=== PATIENT | female | born 1940 | race Caucasian/White ===

== ENCOUNTER → 2017-12-10 08:30 | Outpatient (CLI) | payer MEDICARE, OTHER, SELFPAY ==
[2017-12-10 09:52] LABS: Alanine Aminotransferase 21 IU/L (9-52); Albumin 4.1 g/dL (3.5-5.0); Albumin Globulin Ratio 1.3 (1.0-2.8); Alkaline Phosphatase 71 U/L (38-126); Aspartate Aminotransferase 24 IU/L (14-36); BUN Creatinine Ratio 21.4 (6-22); Bilirubin Total 0.6 mg/dL (0.2-1.3); Blood Urea Nitrogen 15 mg/dL (7-17); Carbon Dioxide 27 mmol/L (22-32); Chloride 104 mmol/L (98-107); Cholesterol 185 mg/dL (140-199); Estimated Glomerular Filt Rate > 60.0 mL/min (>60); Globulin 3.2 g/dL (1.7-4.1); Glucose 87 mg/dL (80-110); HDL Cholesterol 68 mg/dL (40-60); HEMOLYSIS 18 (0-50); LDL Cholesterol Calculated 85 mg/dL (<100); Potassium 4.4 mmol/L (3.4-5.1); Sodium 142 mmol/L (137-145); Total Protein 7.3 g/dL (6.3-8.2); Triglycerides 161 mg/dL (35-150)
[2017-12-10 10:07] LABS: Vitamin D 25 Hydroxy (D3) 38.3 ng/mL (30.0-100.0)
[2017-12-10 10:22] LABS: TSH w/ Reflex to FT4 1.18 uIU/mL (0.47-4.68)
== END ==
PROVIDERS: PCP Family Medicine; Visit Provider Family Medicine
DX: E78.5 Hyperlipidemia, unspecified (principal); M85.80 Other specified disorders of bone density and structure, unspecified site
CPT/HCPCS: 36415; 80053; 80061; 82306; 84443

== ENCOUNTER → 2018-01-07 09:18 | Outpatient (CLI) | payer MEDICARE, OTHER, SELFPAY ==
--- NOTE | 2018-01-07 09:20 | DI.ECHO.S_ITS ---
[facility] +---------+ : : [address] : [address] : : : : [id number] : : : : Phone: [phone]+ Echocardiogram Report + + :Name: JAKI CRABTREE Study Date: 01/07/2018 Height: 62 in : :[facility] Weight: 157 lb : : Gender: Female BSA: 1.7 m2 : :: 1940 Age: 77 yrs BP: 170/82 mmHg: :Reason For Study: Murmur : : Performed By: Willa Whitehead : :Referring: JAMAR MARCELINO : + + Interpretation Summary The left ventricle is normal in size, wall thickness, and systolic function without any focal wall motion abnormalities. The ejection fraction is estimated to be 60-65%. The right ventricle grossly appears normal in size with probable normal systolic function. The right ventricular systolic pressure is estimated at 34 mmHg assuming a right atrial pressure of 3 mm Hg. The left atrium is mildly dilated. Right atrial size is normal. There is moderate mitral regurgitation. There is no other significant valvular heart disease. The aortic root is normal size. Procedure: A two-dimensional transthoracic echocardiogram with color flow and Doppler was performed. The study quality was technically adequate. There is no prior echocardiogram noted for this patient. The patient was in normal sinus rhythm during the exam. Left Ventricle: The left ventricle is normal in size, wall thickness, and systolic function without any focal wall motion abnormalities. The ejection fraction is estimated to be 60-65%. Diastolic function could not be accurately assessed due to contradictory data. Right Ventricle: The right ventricle grossly appears normal in size with probable normal systolic function. Atria: The left atrium is mildly dilated. Right atrial size is normal. The interatrial septum is intact with no evidence for an atrial septal defect. Mitral Valve: The mitral valve leaflets appear borderline thickened, but open well. There is moderate mitral regurgitation. Aortic Valve: The aortic valve is trileaflet. The aortic valve opens well. No aortic regurgitation is present. Tricuspid Valve: The tricuspid valve is normal in structure and function. There is mild tricuspid regurgitation. The right ventricular systolic pressure is estimated at 34 mmHg assuming a right atrial pressure of 3 mm Hg. Pulmonic Valve: The pulmonic valve is not well seen, but is grossly normal. There is trace pulmonic regurgitation. There is no other significant valvular heart disease. Great Vessels: The aortic root is normal size. The dimensions of the ascending aorta are normal. The IVC is of normal diameter and collapses greater than 50% with a sniff. This suggests a low right atrial pressure of 3 mm Hg. Pericardium/ Pleura There is no pericardial effusion. There is no pleural effusion. MMode/2D Measurements & Calculations LVIDd: 4.5 cm Ao root diam: 2.8 cm LVIDs: 3.1 cm Aortic Jxn: 2.0 cm FS: 31.6 % asc Aorta Diam: 3.1 cm IVSd: 0.84 cm Ao Arch Diam (Prox Trans): 2.4 cm LVPWd: 0.90 cm LV alanis. diameter/BSA (cm/m^2): 2.6 LV sys. diameter/BSA (cm/m^2): 1.8 LA dimension: 3.8 cm RA long axis: 4.7 cm LA A2 area: 21.5 cm2 RA area: 14.4 cm2 LA A4 area: 20.8 cm2 RA vol: 37.7 ml LA length (vol): 5.4 cm RA : 21.8 ml/m2 LA vol: 69.5 ml IVC diam: 1.7 cm LA vol index: 40.3 ml/m2 RVDd major: 4.9 cm RVD1 (basal): 3.4 cm RVD2 (mid): 3.0 cm Doppler Measurements & Calculations Ao V2 max: 167.8 cm/sec MV E max charles: 97.9 cm/sec Ao V2 mean: 113.4 cm/sec MV A max charles: 126.1 cm/sec Ao max P.3 mmHg MV E/A: 0.78 Ao mean P.8 mmHg Med Peak E' Charles: 8.1 cm/sec Ao V2 VTI: 38.4 cm E/E' med: 12.1 Lat Peak E' Charles: 5.5 cm/sec E/E' lat: 17.9 E/e' average: 15.0 MV dec time: 0.20 sec MV P1/2t: 60.7 msec TR max charles: 276.6 cm/sec MV P1/2t max charles: 98.2 cm/sec TR max P.6 mmHg MVA(P1/2t): 3.6 cm2 PA V2 max: 80.3 cm/sec PA V2 mean: 49.8 cm/sec PA mean P.2 mmHg PA Accel Time: 0.16 sec MR flow rate: 77.4 cm3/sec MR HEAD radius: 0.57 cm Reading Physician:CECILIA
== END ==
PROVIDERS: PCP Family Medicine; Visit Provider Family Medicine
DX: R01.1 Cardiac murmur, unspecified (principal)
CPT/HCPCS: 93306

== ENCOUNTER 2018-01-25 07:35 | Day surgery (SDC) | payer MEDICARE, OTHER, SELFPAY ==
--- NOTE | 2018-01-25 | PATH_ITS ---
[facility] Accession Number: [id number] . 01 Material submitted: . CECUM POLYP . 02 Diagnosis: Cecum, Polyp, Biopsy: Tubular adenoma. MRV/01/27/2018 . 02 Electronically signed: . Mary Cuba MD, Pathologist NPI- [id number] . 01 Gross description: . CECUM POLYP: Received in formalin are multiple fragment(s) of jacob, soft tissue measuring 1.8 x 0.4 x 0.2 cm in aggregate submitted entirely in 1 cassette(s) /TRC /TRC . 02 Pathologist provided ICD-10: D12.0 . 02 CPT . 274755 Performed at: 01 [facility] [address], [place], [place] [id number] MD Kuldip Peterson MD Phone: [phone] Performed at: 02 [facility] [address] [place], [place] [id number] MD Jaxon Lai MD Phone: [phone]
[2018-01-25 08:04] VITALS: BP 144/79; PULSE 88; RESP 15; TEMP 36.3; O2SAT 98; BMI 27.4
[2018-01-25] MEDS: SODIUM CHLORIDE 0.9% 1,000 ML 100 ML IV (08:11)
--- NOTE | 2018-01-25 08:16 | PM.HP.1 ---
History of Present Illness Chief complaint: [id number] SCREENING COLONOSCOPY Patient History Medical History Age-related osteoporosis without current pathological fracture (Chronic 10/08/17) Hyperlipidemia (Resolved 10/08/17) Macular degeneration (Chronic) Surgical History Anesthesia (Resolved) Status post cholecystectomy (Resolved 1972) Family & Social History Family History: Reviewed 01/25/18 by Reno Harry MD Social History: household members spouse other gardening Tobacco & Substance use: Smoking Status Never smoker alcohol intake current Meds Home Medications Medication Instructions Recorded Confirmed Type aspirin 81 mg PO QDAY #0 10/08/17 12/31/17 History atorvastatin [Lipitor] #0 10/08/17 12/31/17 History biotin #0 10/08/17 12/31/17 History calcium gluconate #0 10/08/17 12/31/17 History coenzyme Q10 [Co Q-10] 100 mg PO #0 10/08/17 12/31/17 History ferrous gluconate #0 10/08/17 12/31/17 History glucosamine sulfate-msm #0 10/08/17 12/31/17 History multivitamin [Multiple Vitamins] 1 tab PO QDAY #0 10/08/17 12/31/17 History omega 6-oid-nfo-fish oil [Fish Oil] 1,000 mg PO #0 10/08/17 12/31/17 History potassium gluconate 99 mg PO #0 10/08/17 12/31/17 History raloxifene [Evista] #0 10/08/17 12/31/17 History vit C,U-Xg-huxun-lutein-zeaxan #0 10/08/17 12/31/17 History [PreserVision AREDS 2] varicella-zoster glycoE vacc-AS01B 50 mcg IM ONCE #1 each 12/31/17 Rx adj(PF) 50 mcg/0.5 mL IM susp, kit Allergies Allergy/AdvReac Type Severity Reaction Status Date / Time Penicillins [PENICILLINS] Allergy Mild rash Verified 12/31/17 08:54 Review of Systems Review of Systems All systems reviewed & are unremarkable except as noted in HPI and below Cardiovascular Comments: History of a murmur Musculoskeletal Comments: Mild arthritis. Exam Vital Signs (past 8 hours): - 01/25/18 08:04 Temperature 97.4 F L Pulse Rate 88 Respiratory Rate 15 Blood Pressure 144/79 H Pulse Oximetry 98 Oxygen Delivery Method Room Air Narrative Exam Narrative: Co Operative no apparent distress. Eyes are nonicteric. Lungs are clear to auscultation without rales or rhonchi. I do not appreciate a murmur heart regular rate and rhythm without murmur or gallop. Her abdomen is soft nontender lax abdominal wall no obvious masses. patient is alert and oriented x3 Assessment & Plan (1) Screening for colon cancer: Current visit: Yes Status: Acute Plan: Assessment/Plan Narrative: Will proceed to colonoscopy. Her last colonoscopy was over 10 years ago. She said she had tons of polyps. I have discussed the procedure and the rationale with the patient including risks of bleeding, perforation which would necessitate a major operation, failure to find remove all lesions and the potential to tattoo. They appeared to understand and wished to proceed.
--- NOTE | 2018-01-25 08:20 | P.HP_ITS ---
History of Present Illness Chief complaint: [id number] SCREENING COLONOSCOPY Patient History Medical History Age-related osteoporosis without current pathological fracture (Chronic 10/08/17 ) Hyperlipidemia (Resolved 10/08/17) Macular degeneration (Chronic) Surgical History Anesthesia (Resolved) Status post cholecystectomy (Resolved 1972) Family & Social History Family History: Reviewed 01/25/18 by Reno Harry MD Social History: household members spouse other gardening Tobacco & Substance use: Smoking Status Never smoker alcohol intake current Meds Home Medications Medication Instructions Recorded Confirmed Type aspirin 81 mg PO QDAY #0 10/08/17 12/31/17 History atorvastatin [Lipitor] #0 10/08/17 12/31/17 History biotin #0 10/08/17 12/31/17 History calcium gluconate #0 10/08/17 12/31/17 History coenzyme Q10 [Co Q-10] 100 mg PO #0 10/08/17 12/31/17 History ferrous gluconate #0 10/08/17 12/31/17 History glucosamine sulfate-msm #0 10/08/17 12/31/17 History multivitamin [Multiple Vitamins] 1 tab PO QDAY #0 10/08/17 12/31/17 History omega 5-bvj-fuf-fish oil [Fish Oil] 1,000 mg PO #0 10/08/17 12/31/17 History potassium gluconate 99 mg PO #0 10/08/17 12/31/17 History raloxifene [Evista] #0 10/08/17 12/31/17 History vit C,S-Ca-xkqde-lutein-zeaxan #0 10/08/17 12/31/17 History [PreserVision AREDS 2] varicella-zoster glycoE vacc-AS01B 50 mcg IM ONCE #1 each 12/31/17 Rx adj(PF) 50 mcg/0.5 mL IM susp, kit Allergies Allergy/AdvReac Type Severity Reaction Status Date / Time Penicillins [PENICILLINS] Allergy Mild rash Verified 12/31/17 08:54 Review of Systems Review of Systems All systems reviewed & are unremarkable except as noted in HPI and below Cardiovascular Comments: History of a murmur Musculoskeletal Comments: Mild arthritis. Exam Vital Signs (past 8 hours): - 01/25/18 08:04 Temperature 97.4 F L Pulse Rate 88 Respiratory Rate 15 Blood Pressure 144/79 H Pulse Oximetry 98 Oxygen Delivery Method Room Air Narrative Exam Narrative: Co Operative no apparent distress. Eyes are nonicteric. Lungs are clear to auscultation without rales or rhonchi. I do not appreciate a murmur heart regular rate and rhythm without murmur or gallop. Her abdomen is soft nontender lax abdominal wall no obvious masses. patient is alert and oriented x3 Assessment & Plan (1) Screening for colon cancer: Current visit: Yes Status: Acute Plan: Assessment/Plan Narrative: Will proceed to colonoscopy. Her last colonoscopy was over 10 years ago. She said she had tons of polyps. I have discussed the procedure and the rationale with the patient including risks of bleeding, perforation which would necessitate a major operation, failure to find remove all lesions and the potential to tattoo. They appeared to understand and wished to proceed.
--- NOTE | 2018-01-25 08:54 | PM.PREOP ---
Pre-operative Note Interval Note Pre-op Check: Yes History & Physical exam performed today by Physician Changes: No ASA Class (for procedural sedation): I
--- NOTE | 2018-01-25 08:58 | SUR.OPER ---
to endo fron opd via cart tespirations unlabired iv patnet positioned per self for procedure
[2018-01-25 09:33] VITALS: BP 141/78; PULSE 78; RESP 11; O2SAT 97
[2018-01-25] MEDS: fentaNYL 250 MCG/5 ML INJ 200 MCG IV (09:33)
[2018-01-25] MEDS: MIDAZOLAM 5 MG/5 ML VIAL IV (09:33)
--- NOTE | 2018-01-25 09:36 | P.OP.ENDO_ITS ---
Operative Date/Time/Diagnoses Date of procedure: 01/25/18 Time of procedure: 09:31 Pre-op diagnosis: History of polyps. Last exam over 10 years ago. Post-op diagnosis: same (Polyps in the right colon. Wang colonic diverticulosis. ) Procedure & Clinicians Study performed: Colonoscopy with cold biopsy Same procedure as scheduled: Yes Indications: Screening Surgeon: Reno Harry Procedure Notes SCOAP/Timeout: Performed Procedure in detail: The patient was placed in the left lateral decubitus position and underwent IV sedation directed by the surgeon consisting of fentanyl and Versed. Digital exam was remarkable for a very lax sphincter. No masses were felt. The scope was inserted and advanced through the rectum into the sigmoid, descending, transverse, and ascending colon. The patient was noted to have extensive diverticulosis throughout her colon. The cecum was reached identified by the ileocecal valve and the appendiceal opening. There was a small polyp removed from the cecum. The ileocecal valve was successfully cannulated. The terminal ileum was normal in appearance. The scope was gradually brought out. An additional Polyp was found at the hepatic flexure. Both this 1 and the cecal polyp were placed in the same container. The scope ultimately was retroflexed in the rectum. The appearance was significant for small hemorrhoids without ulceration. The scope was removed and the patient tolerated the procedure well Scope withdrawal time: Twelve min Sedation minutes: 29 Findings: diverticulosis (Wang colonic), internal hemorrhoids and polyp (Cecum and hepatic flexure) Specimen(s): other (Polyps) Complications: none Recommendations: Colonscopy in 5 years Follow up: as needed Disposition: PACU
[2018-01-25 09:38] VITALS: BP 121/74; PULSE 77; RESP 11; O2SAT 97
--- NOTE | 2018-01-25 09:40 | SUR.PHASEI ---
Awake, belly soft, HOB elevated, denies nausea/pain.
[2018-01-25 09:43] VITALS: BP 138/82; PULSE 69; RESP 10; O2SAT 97
[2018-01-25 09:56] VITALS: BP 130/75; PULSE 76; RESP 12; TEMP 36.6; O2SAT 97
[2018-01-25 10:15] VITALS: BP 134/73; PULSE 70; RESP 12; TEMP 36.4; O2SAT 98
== END 2018-01-25 10:30 | disposition home or self-care (01) ==
PROVIDERS: PCP Family Medicine; Visit Provider Specialist
PROC: 0DJD8ZZ Inspection of Lower Intestinal Tract, Via Natural or Artificial Opening Endoscopic (ICD-10-PCS; CPT 45378; principal; 2018-01-25 09:00)
DX: Z86.010 Personal history of colon polyps (principal); K57.30 Diverticulosis of large intestine without perforation or abscess without bleeding; D12.0 Benign neoplasm of cecum; D12.3 Benign neoplasm of transverse colon; K64.8 Other hemorrhoids
CPT/HCPCS: 45380; 88305; 99152; 99153; J2250; J3010

== ENCOUNTER → 2019-02-25 11:40 | Outpatient (CLI) | payer MEDICARE, OTHER, SELFPAY ==
--- NOTE | 2019-02-25 11:49 | DI.RAD.S_ITS ---
PROCEDURE: XR LUMBAR SPINE MIN 4V INDICATIONS: Sudden onset back pain, r/o compression fx TECHNIQUE: 5 total views of the lumbar spine were acquired, including bilateral oblique views. COMPARISON: [facility], CT, ABDOMEN/PELVIS WITH CONTRAST, 02/13/2008, 7:52. FINDINGS: Bones: This patient has transitional lumbar anatomy. For the purposes of this examination, the level with the last pair of ribs is considered to be T12. By this numbering scheme, the S1 level is lumbarized. There is a well-developed disc space at S1 is seen. No displaced fractures are seen. No suspicious lytic or blastic lesions are seen. Mild grade 1 anterolisthesis is seen at L5-S1. Moderate disc space narrowing is seen in L5-S1. Mild disc space narrowing is seen in a more and L4-L5. Facet arthropathy is seen, which is most prominent inferiorly. Minimal S-shaped scoliotic curvature is seen. Soft tissues: Overlying bowel gas pattern is normal. No suspicious soft tissue calcifications. Cholecystectomy clips are seen. Atherosclerotic calcification is noted. Oblique images: No pars defects. IMPRESSION: No acute abnormality is seen. No acute compression fractures are seen. Transitional lumbar anatomy, with a highly lumbarized S1 level. Mild L5-S1 anterolisthesis. Dictated by: Austyn Mon M.D. on 02/25/2019 at 11:25 Approved by: Austyn Mon M.D. on 02/25/2019 at 11:28
== END ==
PROVIDERS: PCP Family Medicine; Visit Provider Physician Assistant
DX: M54.5 Low back pain (principal); M43.17 Spondylolisthesis, lumbosacral region; M48.07 Spinal stenosis, lumbosacral region; M48.061 Spinal stenosis, lumbar region without neurogenic claudication; I25.10 Atherosclerotic heart disease of native coronary artery without angina pectoris; Z90.49 Acquired absence of other specified parts of digestive tract
CPT/HCPCS: 72110

== ENCOUNTER → 2020-08-16 07:47 | Outpatient (CLI) | payer MEDICARE, OTHER, SELFPAY ==
[2020-08-16] MEDS: COVID-19 VACC #1, MRNA(MOD) 100 MCG/0.5 ML VIAL IM (07:54)
== END ==
PROVIDERS: PCP Family Medicine; Visit Provider Internal Medicine
DX: Z23 Encounter for immunization (principal)
CPT/HCPCS: 0011A; 91301

== ENCOUNTER → 2020-09-12 08:08 | Outpatient (CLI) | payer MEDICARE, OTHER, SELFPAY ==
[2020-09-12] MEDS: COVID-19 VACC #2, MRNA(MOD) 100 MCG/0.5 ML VIAL IM (08:17)
== END ==
PROVIDERS: PCP Family Medicine; Visit Provider Internal Medicine
DX: Z23 Encounter for immunization (principal)
CPT/HCPCS: 0012A; 91301

== ENCOUNTER → 2020-09-16 11:09 | Outpatient (CLI) | payer MEDICARE, OTHER, SELFPAY ==
[2020-09-16 13:06] LABS: COVID19 -Nasal RAPID Negative (Negative)
== END ==
PROVIDERS: PCP Family Medicine; Visit Provider Physician Assistant
DX: Z01.812 Encounter for preprocedural laboratory examination (principal); Z20.822 Contact with and (suspected) exposure to COVID-19
CPT/HCPCS: 87635; C9803

== ENCOUNTER 2020-09-17 08:00 | Day surgery (SDC) | payer MEDICARE, OTHER, SELFPAY ==
[2020-09-17 09:17] VITALS: BP 152/77; PULSE 77; RESP 16; TEMP 36.8; O2SAT 99; BMI 27.4
[2020-09-17] MEDS: CATARACT EYE COMPOUND (10 DROPS/SYRINGE) 3 DROPS EYE-OP (09:25)
[2020-09-17] MEDS: PROPARACAINE 0.5% OPHTH SOL 2 DROPS EYE-OP (09:25)
--- NOTE | 2020-09-17 10:01 | PM.PREOP ---
Pre-operative Note Interval Note History & Physical reviewed/Exam performed by Physician: Yes Changes to H&P: No
--- NOTE | 2020-09-17 10:01 | PM.OP.1 ---
Operative Date/Time/Diagnoses Pre-op diagnosis: Nuclear cataract right eye Procedure & Clinicians Procedure: Cataract Surgery Same procedure as scheduled: Yes Surgeon: Nicanor Holguin Anesthesia Type: MAC +/- and Sedation Operative Notes Procedure in detail: Patient brought to the operating suite. Tetracaine drops placed in the right eye. Patient was prepped and draped in sterile manner. Wire lid speculum was placed in the eye. Betadine drops were placed on the eye. This was irrigated. Lidocaine jelly was placed on the eye. A paracentesis port was created with a side-port blade. 0.1 mL 1% preservative free lidocaine was injected into the anterior chamber. The anterior chamber was deepened with viscoelastic. 2.6 mm keratome was used to create a temporal clear corneal incision. the pupil was floppy and miotic. A 6.25mm Malyugin ring was used to enlarge the pupil. Cystotome and Utrata forceps were used to create continuous tear capsulorrhexis. Balanced salt solution was used to hydro dissect the nucleus. The phacoemulsification handpiece was inserted and the nucleus was removed using the stop and chop technique. The irrigation aspiration handpiece was inserted and the remaining cortex was removed. Anterior chamber was deepened with viscoelastic. An Bardales ZCB00 intraocular lens with a power of 20.5 was injected into the capsular bag. The malyugin ring was removed. Irrigation aspiration handpiece was inserted and the remaining viscoelastic was removed. Incision was hydrated with balanced salt solution and found to be leak free with pressure with Weck-Gabi sponges. 0.1 mL Vigamox injected anterior chamber. 0.3 mL Kenalog 10 mg was injected subconjunctivally. Lid speculum was removed. The patient left the operating room in excellent condition. Complications: none Post-operative Condition: stable Disposition: same day surgery
[2020-09-17] MEDS: LIDOCAINE JELLY 2% 5 ML 1 APPLIC TOP (10:18)
[2020-09-17] MEDS: PHENYLEPHRINE/LIDOCAINE VIAL (OR) 0.2 ML EYE-OP (10:19)
[2020-09-17] MEDS: BALANCED SALT IRRIG SOLN NO.2 500 ML, EPINEPHrine 1 MG IRR (10:19)
[2020-09-17] MEDS: MOXIFLOXACIN INJ 5 MG/ML VIAL EYE-OP (10:19)
[2020-09-17] MEDS: TRIAMCINOLONE 50 MG/5 ML VIAL INJ (10:19)
[2020-09-17] MEDS: TETRACAINE 0.5% OPHTH DROPS 4 ML 2 DROPS EYE-OP (10:20)
[2020-09-17] MEDS: CHONDROIDTIN/SOD HYALURONATE 1.05 ML SYRINGE INTRAOCULA (10:20)
[2020-09-17 10:37] VITALS: BP 146/76; PULSE 71; RESP 16; TEMP 36.3; O2SAT 98
--- NOTE | 2020-09-17 10:38 | SUR.PHASEII ---
Pt back from surgery and denies pain or nausea. Drinking po fluids without problems, no c/o. Report from Dr Galarza
--- NOTE | 2020-09-17 10:56 | SUR.PHASEII ---
Pt dcd via wc in stable condition with all belongings and discharge instructions having understood all instructions, no c/o,
== END 2020-09-17 10:57 | disposition home or self-care (01) ==
PROVIDERS: PCP Family Medicine; Referring Provider Ophthalmology; Visit Provider Ophthalmology
PROC: (CPT 66984; principal; 2020-09-17 10:15)
DX: H25.11 Age-related nuclear cataract, right eye (principal); F41.9 Anxiety disorder, unspecified; E78.5 Hyperlipidemia, unspecified; H35.30 Unspecified macular degeneration
CPT/HCPCS: 66984; J0171; J2250; J3010; J3301

== ENCOUNTER → 2020-09-28 11:15 | Outpatient (CLI) | payer MEDICARE, OTHER, SELFPAY ==
[2020-09-28 14:42] LABS: COVID19 -Nasal RAPID Negative (Negative)
== END ==
PROVIDERS: PCP Family Medicine; Visit Provider Physician Assistant
DX: Z20.822 Contact with and (suspected) exposure to COVID-19 (principal)
CPT/HCPCS: 87635; C9803

== ENCOUNTER 2020-10-01 08:05 | Day surgery (SDC) | payer MEDICARE, OTHER, SELFPAY ==
[2020-10-01] MEDS: PROPARACAINE 0.5% OPHTH SOL 2 DROPS EYE-OP (09:06)
[2020-10-01 09:09] VITALS: BP 141/76; PULSE 74; RESP 16; TEMP 37.2; O2SAT 98; BMI 27.4
[2020-10-01] MEDS: CATARACT EYE COMPOUND (10 DROPS/SYRINGE) 3 DROPS EYE-OP (09:20)
--- NOTE | 2020-10-01 09:48 | PM.PREOP ---
Pre-operative Note Interval Note History & Physical reviewed/Exam performed by Physician: Yes Changes to H&P: No
--- NOTE | 2020-10-01 09:48 | PM.OP.1 ---
Operative Date/Time/Diagnoses Pre-op diagnosis: Nuclear Cataract Left eye Post-op diagnosis: same Procedure & Clinicians Same procedure as scheduled: Yes Surgeon: Nicanor Holguin Anesthesia Type: MAC +/- and Sedation Operative Notes Procedure in detail: Patient brought to the operating suite. Tetracaine drops placed in the left eye. Patient was prepped and draped in sterile manner. Wire lid speculum was placed in the eye. Betadine drops were placed on the eye. This was irrigated. Lidocaine jelly was placed on the eye. A paracentesis port was created with a side-port blade. 0.1 mL 1% preservative free lidocaine was injected into the anterior chamber. The anterior chamber was deepened with viscoelastic. 2.6 mm keratome was used to create a temporal clear corneal incision. The pupil was floppy and miotic. A 6.25 mm Malyugin ring was used to enlarge the pupil. Cystotome and Utrata forceps were used to create continuous tear capsulorrhexis. Balanced salt solution was used to hydro dissect the nucleus. The phacoemulsification handpiece was inserted and the nucleus was removed using the stop and chop technique. The irrigation aspiration handpiece was inserted and the remaining cortex was removed. Anterior chamber was deepened with viscoelastic. An Bardales ZCB00 intraocular lens with a power of 18.5 was injected into the capsular bag. The Malyugin ring was removed. Irrigation aspiration handpiece was inserted and the remaining viscoelastic was removed. Incision was hydrated with balanced salt solution and found to be leak free with pressure with Weck-Gabi sponges. 0.1 mL Vigamox injected anterior chamber. 0.3 mL Kenalog 10 mg was injected subconjunctivally. Lid speculum was removed. The patient left the operating room in excellent condition. Complications: none Post-operative Condition: stable Disposition: same day surgery
[2020-10-01] MEDS: LIDOCAINE JELLY 2% 5 ML 1 APPLIC TOP (10:01)
[2020-10-01] MEDS: BALANCED SALT IRRIG SOLN NO.2 500 ML, EPINEPHrine 1 MG IRR (10:02)
[2020-10-01] MEDS: TRIAMCINOLONE 50 MG/5 ML VIAL INJ (10:02)
[2020-10-01] MEDS: PHENYLEPHRINE/LIDOCAINE VIAL (OR) 0.2 ML EYE-OP (10:02)
[2020-10-01] MEDS: MOXIFLOXACIN INJ 5 MG/ML VIAL EYE-OP (10:02)
[2020-10-01] MEDS: CHONDROIDTIN/SOD HYALURONATE 1.05 ML SYRINGE INTRAOCULA (10:03)
[2020-10-01] MEDS: TETRACAINE 0.5% OPHTH DROPS 4 ML 2 DROPS EYE-OP (10:03)
[2020-10-01 10:15] VITALS: BP 135/69; PULSE 69; RESP 14; TEMP 36.2; O2SAT 98
[2020-10-01 10:27] VITALS: BP 141/76; PULSE 74; RESP 16; TEMP 37.2; O2SAT 98
--- NOTE | 2020-10-01 10:51 | SUR.PHASEII ---
1027 assumed care for patient, denies pain, light headedness. VSS, IV dc'd, clothing given. Stable
--- NOTE | 2020-10-01 10:58 | SUR.PHASEII ---
Addendum entered by Nellie Batres R.N. 10/01/20 11:07: Error charted on wrong patient Original Note: 1057 Denies pain/nausea/light-headedness. Ambulated to bathroom, voided. Stable on feet. Declined more fluids in OPD while waiting for spouse to arrive. Pleasant and appreciative.
== END 2020-10-01 10:41 | disposition home or self-care (01) ==
PROVIDERS: PCP Family Medicine; Referring Provider Family Medicine; Visit Provider Ophthalmology
PROC: (CPT 66984; principal; 2020-10-01 10:15)
DX: H25.12 Age-related nuclear cataract, left eye (principal)
CPT/HCPCS: 66984; J0171; J2250; J3010; J3301

== ENCOUNTER → 2022-07-09 07:05 | Outpatient (CLI) | payer MEDICARE, OTHER, SELFPAY ==
[2022-07-09 08:36] LABS: Alanine Aminotransferase 18 IU/L (<35); Albumin 4.3 g/dL (3.5-5.0); Albumin Globulin Ratio 1.3 (1.0-2.8); Alkaline Phosphatase 96 U/L (38-126); Aspartate Aminotransferase 24 IU/L (14-36); BUN Creatinine Ratio 22.2 (6-22); Bilirubin Total 0.6 mg/dL (0.2-1.3); Blood Urea Nitrogen 14 mg/dL (7-17); Calcium 8.9 mg/dL (8.4-10.2); Carbon Dioxide 27 mmol/L (22-32); Chloride 104 mmol/L (98-107); Cholesterol 213 mg/dL (140-199); Estimated Glomerular Filt Rate > 60 mL/min (>60); Globulin 3.4 g/dL (1.7-4.1); Glucose 95 mg/dL (80-110); HDL Cholesterol 68 mg/dL (40-60); HEMOLYSIS < 15 (0-50); LDL Cholesterol Calculated 105 mg/dL (<100); Potassium 4.2 mmol/L (3.4-5.1); Sodium 140 mmol/L (137-145); Total Protein 7.7 g/dL (6.3-8.2); Triglycerides 198 mg/dL (35-150)
== END ==
PROVIDERS: PCP Family Medicine; Referring Provider Family Medicine; Visit Provider Family Medicine
DX: E78.5 Hyperlipidemia, unspecified (principal)
CPT/HCPCS: 36415; 80053; 80061

== ENCOUNTER → 2023-10-27 09:22 | Outpatient (CLI) | payer MEDICARE, OTHER, SELFPAY ==
[2023-10-27 10:57] LABS: HEMOLYSIS < 15 (0-50); Potassium 4.6 mmol/L (3.4-5.1)
[2023-10-27 10:58] LABS: Alanine Aminotransferase 15 IU/L (<35); Albumin 4.4 g/dL (3.5-5.0); Albumin Globulin Ratio 1.6 (1.0-2.8); Alkaline Phosphatase 94 U/L (38-126); Aspartate Aminotransferase 24 IU/L (14-36); BUN Creatinine Ratio 21.5 (6-22); Bilirubin Total 0.6 mg/dL (0.2-1.3); Blood Urea Nitrogen 14 mg/dL (7-17); Calcium 9.6 mg/dL (8.4-10.2); Carbon Dioxide 25 mmol/L (22-32); Chloride 108 mmol/L (98-107); Cholesterol 205 mg/dL (140-199); Estimated Glomerular Filt Rate > 60 mL/min (>60); Globulin 2.8 g/dL (1.7-4.1); Glucose 98 mg/dL (80-110); HDL Cholesterol 87 mg/dL (40-60); LDL Cholesterol Calculated 89 mg/dL (<100); Sodium 140 mmol/L (137-145); Total Protein 7.2 g/dL (6.3-8.2); Triglycerides 147 mg/dL (35-150)
== END ==
LOC: LAB 09:24
PROVIDERS: PCP Family Medicine; Referring Provider Family Medicine; Visit Provider Family Medicine
DX: E78.5 Hyperlipidemia, unspecified (principal)
CPT/HCPCS: 36415; 80053; 80061